=== PATIENT | male | born 1955 | race Caucasian/White ===

== ENCOUNTER → 2016-08-01 | Day surgery (SDC) | payer MEDICARE, OTHER ==
[~2016-08-01] VITALS: Ht 170.2 cm; Wt 69.6 kg
== END | disposition home or self-care (01) ==
LOC: FAS 11:41
DX: S46.112A Strain of muscle, fascia and tendon of long head of biceps, left arm, initial encounter (principal); S43.432A Superior glenoid labrum lesion of left shoulder, initial encounter; M75.111 Incomplete rotator cuff tear or rupture of right shoulder, not specified as traumatic; M19.012 Primary osteoarthritis, left shoulder; M77.8 Other enthesopathies, not elsewhere classified; I10 Essential (primary) hypertension; K21.9 Gastro-esophageal reflux disease without esophagitis; Z85.46 Personal history of malignant neoplasm of prostate; R39.15 Urgency of urination; F41.9 Anxiety disorder, unspecified; F17.210 Nicotine dependence, cigarettes, uncomplicated
CPT/HCPCS: J2405; J2704; J2795; J3010